=== PATIENT | male | born 1985 | race Caucasian/White ===

== ENCOUNTER 2025-03-20 20:45 | Emergency (ER) | payer OTHER ==
[~2025-03-20] VITALS: Ht 177.8 cm; Wt 74.8 kg
[2025-03-20] MEDS ORDERED: KETOROLAC TROMETHAMINE INJ 30 MG/ML VIAL ONE (22:22)
[2025-03-20] MEDS: KETOROLAC TROMETHAMINE INJ 30 MG/ML VIAL IM ONE (22:27)
[2025-03-20 22:44] LABS: PLATELET COUNT (AUTO) 212 K/uL (150-450); RED BLOOD CELL COUNT(AUTO) 4.46 MIL/uL (4.5-6.0); RED CELL DISTRIBUTION WIDTH 13.1 % (11.5-15.0); WHITE BLOOD COUNT (AUTO) 6.1 K/uL (4.3-11.0)
[2025-03-20 22:55] LABS: CALCIUM, SERUM 8.6 mg/dL (8.5-10.1); CREATININE 1.0 mg/dL (0.6-1.3); SODIUM SERUM 140 mmol/L (136-145); UREA NITROGEN, BLOOD 9 mg/dL (7-18)
[2025-03-20 23:02] LABS: ASPARTATE AMINOTRANSFERASE 15 U/L (15-37); TOTAL PROTEIN, SERUM 6.1 g/dL (6.4-8.2)
[2025-03-21 00:19] VITALS: BP 124/81; TEMP 98; O2SAT 97
== END 2025-03-21 00:21 | disposition home or self-care (01) ==
LOC: ER 20:58
DX: K80.50 Calculus of bile duct without cholangitis or cholecystitis without obstruction (principal); R94.31 Abnormal electrocardiogram [ECG] [EKG]; R11.0 Nausea
CPT/HCPCS: 99285; 76705; 96372; 93005; 85025; 80048; 83690; 80076; 36415; 84484; J1885